=== PATIENT | male | born 1945 | race Caucasian/White ===

== ENCOUNTER → 2018-03-19 07:01 | Outpatient (CLI) | payer MEDICARE ==
[2016-03-31 08:10] VITALS: BMI 26.9
[~2018-03-19 07:01] MED LIST: CATAPRES0.1 MG PO; CELEXA10 MG PO; GLIPIZIDE10 MG PO; LISINOPRIL2.5 MG; MAGNESIUM GLUC500 M1 PO; NORMODYNE / TR300 MG PO; PROTONIX20 MG PO; VITAMIN D3400 UNI1 PO; ZOCOR20 MG PO; [UNRECOGNIZED DRUG - REMARK]
== END | disposition home or self-care (01) ==
LOC: D.US 07:01
DX: I10 Essential (primary) hypertension (principal)

== ENCOUNTER 2018-11-12 19:35 | Inpatient (IN) | payer MEDICARE ==
[~2018-11-12] VITALS: Ht 172.7 cm; Wt 78.0 kg
[~2018-11-12 19:35] MED LIST changes: -LISINOPRIL2.5 MG; +ZESTRIL40 MG PO
[2018-11-12] MEDS ORDERED: HYDRALAZINE HCL25 MG PO (19:42)
--- NOTE | 2018-11-12 19:58 | NUR ---
URINE SAMPLE SENT TO LAB
--- NOTE | 2018-11-12 20:09 | NUR ---
PT GONE TO CT
[2018-11-12 21:27] LABS: APPEARANCE CLEAR (CLEAR); BILIRUBIN NEGATIVE (NEGATIVE); COLOR YELLOW (YELLOW); GLUCOSE 1000 mg/dL (NEGATIVE); KETONE NEGATIVE (NEGATIVE); NITRITE NEGATIVE (NEGATIVE); PROTEIN 1+ mg/dL (NEGATIVE); SPECIFIC GRAVITY 1.015 (1.005-1.020); UROBILINOGEN NORMAL (NORMAL)
[2018-11-12 21:28] LABS: BACTERIA FEW /hpf (NONE SEEN)
[2018-11-12 23:12] VITALS: BP 164/78
--- NOTE | 2018-11-12 23:14 | NUR ---
PT LYING IN ROOM WITH FAMILY AT BEDSIDE. DENIES PAIN OR NEEDS AT THIS TIME.
--- NOTE | 2018-11-13 | NUR ---
RECEIVED TO FLOOR FROM ER, ORIENTED TO ROOM, CALL LIGHT IN REACH, BED LOWEST POSITION, DENIES NEEDS, WILL CONTINUE POC
[2018-11-13 00:10] LABS: BASOPHILS 0 % (0-2); EOSINOPHILS 0 % (0-7); HEMATOCRIT 36.1 % (42.0-54.0); HEMOGLOBIN 12.3 g/dL (13.5-17.5); IMMATURE GRANULOCYTES 0.4 % (0-5); LYMPHOCYTES 8.6 % (15-50); MCH 32.5 pg (26.0-34.0); MCHC 34.1 g/dL (31.0-37.0); MCV 95.5 fL (80.0-100.0); MEAN PLATELET VOLUME 10.4 fL (7.4-10.4); MONOCYTES 7.3 % (2-11); NEUTROPHILS 83.7 % (40-80); PLATELET COUNT 149 10x3/uL (130-400); RBC 3.78 10x6/uL (4.20-6.10); RDW 12.8 % (11.5-14.5); WBC 9.9 10x3/uL (4.8-10.8)
[2018-11-13 00:28] LABS: ALBUMIN 3.6 g/dL (3.4-5.0); ANION GAP 13.3 mmol/L (8-16); BILIRUBIN - TOTAL 0.96 mg/dL (0.2-1.3); CREATININE - SERUM 1.8 mg/dL (0.6-1.3); POTASSIUM - SERUM 5.3 mmol/L (3.5-5.1); PROTEIN - SERUM 7.1 g/dL (6.4-8.2)
[2018-11-13 02:25] VITALS: BP 168/78; BMI 26.2
--- NOTE | 2018-11-13 07:45 | NUR ---
MORNING ASSESSMENT COMPLETE. SEE ASSESSMENT FLOWSHEET FOR FURTEHR DETAILS. PT LYING IN BED AAO X4 TO PERSON, PLACE, TIME, AND SITUATION. DENIES NEEDS AT THIS TIME. TALKED TO ON PHONE. CL IN REACH. SIDE RAILS UP X3 FOR PT SAEFTY. BED IN LOWEST POSITION.
[2018-11-13 08:30] VITALS: BP 160/63
[2018-11-13 10:08] LABS: % SATURATION 24 % (15-55); IRON 64 ug/dl (35-150); TOTAL IRON BIND CAPACITY 261 ug/dl (260-445); UNSAT IRON BIND CAPACITY 197 ug/dl (150-375)
[2018-11-13 11:56] VITALS: BP 195/80
[2018-11-13 12:31] VITALS: Ht 172.7 cm; Wt 78.0 kg
[2018-11-13 15:13] VITALS: BP 123/47
[2018-11-13 19:15] VITALS: BP 122/53
--- NOTE | 2018-11-13 20:00 | NUR ---
ASSESSMENT PER FLOWSHEET. LOPEZ MAT APPLIED TO BED. ALARMS SET. SR UP X2 CALL LIGHT WITHIN REACH PT REFUSES TO WEAR YELLOW GOWN. IV PATENT RT AC OF LR AT 125CC'S/HR. SITE CLEAR. ABRASION AND BRUISES TO LEFT FACE AND LEFT EYE. LEFT ARM AND LEG WITH CONTUSIONS, BRUISING AND ABRASIONS. O2 ON 2L/M PER NC.
--- NOTE | 2018-11-13 21:15 | NUR ---
MEDS GIVEN PER MAR.
--- NOTE | 2018-11-13 21:30 | NUR ---
GVRJ=[id number]. REGULAR INSULIN 12 UNITS GIVEN SUBC TO LEFT ARM PER S/S.
--- NOTE | 2018-11-13 23:01 | NUR ---
C/O PAIN TO LEFT RIB FX SITE. RATES PAIN #8. ULTRAM 100MG PO GIVEN FOR PAIN CONTROL.
--- NOTE | 2018-11-14 02:00 | NUR ---
EYES CLOSED RESPIRATIONS WITH EASE AND UNLABORED.
[2018-11-14 03:17] VITALS: BP 115/61
[2018-11-14 05:18] LABS: BASOPHILS 0 % (0-2); EOSINOPHILS 2.4 % (0-7); HEMATOCRIT 29.1 % (42.0-54.0); IMMATURE GRANULOCYTES 0.2 % (0-5); LYMPHOCYTES 16.5 % (15-50); MCH 32.7 pg (26.0-34.0); MCHC 33.7 g/dL (31.0-37.0); MONOCYTES 12.3 % (2-11); NEUTROPHILS 68.6 % (40-80); PLATELET COUNT 137 10x3/uL (130-400); RDW 13.1 % (11.5-14.5); WBC 8.8 10x3/uL (4.8-10.8)
[2018-11-14 05:28] LABS: HEMOGLOBIN 9.8 g/dL (13.5-17.5)
[2018-11-14 05:49] LABS: ALBUMIN 3.1 g/dL (3.4-5.0); BILIRUBIN - TOTAL 0.53 mg/dL (0.2-1.3); CALCIUM 8.8 mg/dL (8.5-10.1); CARBON DIOXIDE 30.2 mmol/L (21.0-32.0)
[2018-11-14 05:50] LABS: ANION GAP 10.2 mmol/L (8-16); POTASSIUM - SERUM 4.4 mmol/L (3.5-5.1)
--- NOTE | 2018-11-14 06:19 | NUR ---
MEDS GIVEN PER MAR [id number]. NO COVERAGE
[2018-11-14 08:52] VITALS: BP 134/84
[2018-11-14 12:12] LABS: FOLATE (FOLIC ACID) - SERUM 15.3 ng/mL (>3.0)
[2018-11-14 12:57] VITALS: BP 172/58
[2018-11-14 16:14] VITALS: BP 168/68
--- NOTE | 2018-11-14 17:28 | MORECARE ---
CASE MANAGEMENT DISCHARGE SUMMARY PATIENT: LEYDA PINEDA UNIT: [id number] ADM DATE: 11/13/18 AGE: 73 : 45 SEX: M ROOM/BED: D.2223 AUTHOR: LINDA FLORES PHYSICIAN: REFERRING PHYSICIAN: MARY ANNA MD DATE OF SERVICE: 11/14/18 Discharge Plan Patient Name: LEYDA PINEDA Facility: [facility]:[place] : 1945 Planned Disposition: Home Anticipated Discharge Date: 11/17/18 Discharge Date: Expected LOS: 4 Initial Reviewer: [email or web address] Initial Review Date: 11/14/2018 Generated: 11/14/18 6:27 pm DCPIA - Discharge Planning Initial Assessment Updated by [id number]: Alyson Chanel on 11/14/18 5:24 pm * Is the patient Alert and Oriented? Yes * How many steps to enter\exit or inside your home? * PCP DR. LOPEZ * Pharmacy [facility] IN [place] * Preadmission Environment Home with Family * ADLs Independent * Equipment CPAP Glucometer Rolling Walker Shower Chair * List name and contact numbers for known caregivers / representatives who currently or will assist patient after discharge: JUAN () [phone] * Verbal permission to speak to the caregivers and representatives has been obtained from the patient. Yes * Community resources currently utilized None * Additional services required to return to the preadmission environment? Yes * Can the patient safely return to the preadmission environment? Yes * Has this patient been hospitalized within the prior 30 days at any hospital? No Coverage Notice Reviewer: [id number] - Alyson Chanel Notice Issued Date-Time: 11/14/2018 17:50 Notice Type: Medicare Outpatient Observation Notice Notice Delivered To: Family Member Relationship to Patient: Spouse Senior Network Systems Engineer Name: JUAN PINEDA Delivery Method: HAND - Hand Delivered Nettie Days: Prior Verbal Notification: Recipient Understood Notice: Yes Recipient Signature: Yes Med Rec Note Co-signed by Attending: Coverage Notice Comment: Patient Name: LEYDA PINEDA Page [id number] at 1728 All edits/amendments must be made on the electronic document DICTATION DATE: 11/14/181726 ASSEMBLER: MIYA 11/14/181726 RPT#: [id number] DC DATE: STATUS: ADM IN [facility] [address] [place] [address] END OF REPORT
--- NOTE | 2018-11-14 17:36 | MORECARE ---
CASE MANAGEMENT DISCHARGE SUMMARY PATIENT: LEYDA PINEDA UNIT: [id number] ADM DATE: 11/13/18 AGE: 73 : 45 SEX: M ROOM/BED: D.2223 AUTHOR: LINDA FLORES PHYSICIAN: REFERRING PHYSICIAN: MARY ANNA MD DATE OF SERVICE: 11/14/18 Discharge Plan Patient Name: LEYDA PINEDA Facility: [facility]:[place] : 1945 Planned Disposition: Home Anticipated Discharge Date: 11/17/18 Discharge Date: Expected LOS: 4 Initial Reviewer: [email or web address] Initial Review Date: 11/14/2018 Generated: 11/14/18 6:36 pm Comments DCP- Discharge Planning Updated by [id number]: Alyson Chanel on 11/14/18 4:[address] Patient Name: LEYDA PINEDA Admission Status: ER Accout number: [id number] Admission Date: 11-13-2018 : 1945 Admission Diagnosis: Attending: MARY ANNA Current LOS: 1 Anticipated DC Date: 11-17-2018 Planned Disposition: Home Primary Insurance: [facility] MED[employer] Discharge Planning Comments: CM MET WITH PATIENT AND (JUAN) REGARDING D/C NEEDS AND PLANS. PATIENT STATED THERE HOME HAS NO STEPS OR STAIRS. STATED THEIR SON (XAVIER) WILL DRIVE PATIENT HOME AT DISCHARGE. PATIENT STATED HE IS INDEPENDENT WITH HIS CARE AND HAS A WALKER, SHOWER CHAIR, GLUCOMETER AND C-PAP AT HOME. PATIENTS PCP IS DR. LOPEZ AND PHARMACY IS [facility] IN [place]. CM MENTIONED HOME HEALTH AND THE STATED SHE WANTS TO SPEAK WITH THE PHYSICIAN BEFORE SHE DECIDES ON HOME HEALTH. CM WILL CONTINUE TO FOLLOW PATIENT WITH D/C NEEDS AND PLANS. PCP [facility] [place] JUAN () [phone] Polisher Numeral: Alyson Chanel DCPIA - Discharge Planning Initial Assessment Updated by [id number]: Alyson Chanel on 11/14/18 5:24 pm * Is the patient Alert and Oriented? Yes * How many steps to enter\exit or inside your home? * PCP DR. LOPEZ * Pharmacy [facility] IN [place] * Preadmission Environment Home with Family * ADLs Independent * Equipment CPAP Glucometer Rolling Walker Shower Chair * List name and contact numbers for known caregivers / representatives who currently or will assist patient after discharge: JUAN () [phone] * Verbal permission to speak to the caregivers and representatives has been obtained from the patient. Yes * Community resources currently utilized None * Additional services required to return to the preadmission environment? Yes * Can the patient safely return to the preadmission environment? Yes * Has this patient been hospitalized within the prior 30 days at any hospital? No Coverage Notice Reviewer: [id number] Chaz Chanel Notice Issued Date-Time: 11/14/2018 17:50 Notice Type: Medicare Outpatient Observation Notice Notice Delivered To: Family Member Relationship to Patient: Spouse Pipe Jeeper Name: JUAN PINEDA Delivery Method: HAND - Hand Delivered Nettie Days: Prior Verbal Notification: Recipient Understood Notice: Yes Recipient Signature: Yes Med Rec Note Co-signed by Attending: Coverage Notice Comment: Last DP export: 11/14/18 4:27 p Patient Name: LEYDA PINEDA Page [id number] at 1736 All edits/amendments must be made on the electronic document DICTATION DATE: 11/14/181734 GENETIC TECHNOLOGIST: MIYA 11/14/181734 RPT#: [id number] DC DATE: STATUS: ADM IN [facility] [address] [place] [address] END OF REPORT
--- NOTE | 2018-11-14 19:20 | NUR ---
PATIENT IN BED WITH EYES CLOSED RESTING QUIETLY. CALL LIGHT WITHIN REACH.
[2018-11-14 20:00] VITALS: BP 168/62
--- NOTE | 2018-11-14 22:15 | NUR ---
PT SITTING UP IN BED, NO SIGNS OF DISTRESS. ALERT AND ORIENTED. DENIES PAIN AT THIS TIME. IV RIGHT AC INFUSING NS @ 75. SCDS IN PLACE. BED ALARM ON. WITHOUT NEEDS AT THIS TIME. CL IN REACH, WILL CONT TO MONITOR
[2018-11-15] VITALS: BP 179/82
[2018-11-15 04:00] VITALS: BP 137/71
--- NOTE | 2018-11-15 05:15 | NUR ---
REMOVED LIDOCAINE PATCH FROM LEFT RIB CAGE PER ORDER TO REMOVE AFTER 12 HOURS
[2018-11-15 05:39] LABS: ANION GAP 9.2 mmol/L (8-16); CALCIUM 8.3 mg/dL (8.5-10.1); CARBON DIOXIDE 29.1 mmol/L (21.0-32.0); CREATININE - SERUM 1.9 mg/dL (0.6-1.3); POTASSIUM - SERUM 4.3 mmol/L (3.5-5.1)
[2018-11-15 05:56] LABS: HEMATOCRIT 25.5 % (42.0-54.0); HEMOGLOBIN 8.7 g/dL (13.5-17.5); LYMPHOCYTES 20.9 % (15-50); MCH 33.2 pg (26.0-34.0); MCHC 34.1 g/dL (31.0-37.0); MCV 97.3 fL (80.0-100.0); MEAN PLATELET VOLUME 10.2 fL (7.4-10.4); RBC 2.62 10x6/uL (4.20-6.10); RDW 12.8 % (11.5-14.5)
[2018-11-15 05:57] LABS: PLATELET COUNT 109 10x3/uL (130-400); WBC 6.2 10x3/uL (4.8-10.8)
--- NOTE | 2018-11-15 07:55 | NUR ---
ASSESSMENT PER FLOW SHEET. PT IS SITTING UP AT BEDSIDE. HE IS WITHOUT NEEDS.CALL LIGHT IN REACH
[2018-11-15 09:52] VITALS: BP 149/57
--- NOTE | 2018-11-15 10:51 | NUR ---
AMBULATING IN HALLS WITH PT. PT IS WITHOUT DISTRESS
[2018-11-15 13:52] VITALS: BP 166/72
[2018-11-15 14:07] LABS: APPEARANCE CLEAR (CLEAR); BILIRUBIN NEGATIVE (NEGATIVE); COLOR YELLOW (YELLOW); GLUCOSE NEGATIVE (NEGATIVE); KETONE NEGATIVE (NEGATIVE); NITRITE NEGATIVE (NEGATIVE); PROTEIN NEGATIVE (NEGATIVE); SPECIFIC GRAVITY 1.015 (1.005-1.020); UROBILINOGEN NORMAL (NORMAL)
--- NOTE | 2018-11-15 15:37 | NUR ---
NUTRITION F//U PT TOLERATING DIABETIC DIET WITH 100% INTAKE RECENT MEALS. WILL CONTINUE TO PROVIDE DIET, MONITOR PO INTAKE. RD FOLLOWING
[2018-11-15 16:15] LABS: HEMATOCRIT 25.5 % (42.0-54.0); HEMOGLOBIN 8.5 g/dL (13.5-17.5)
[2018-11-15 17:26] VITALS: BP 168/89
--- NOTE | 2018-11-15 19:45 | NUR ---
PT SITTING UP IN BED WITHOUT DISTRESS. STATES PAIN 01/29, GAVE NORCO ORDERED. DENIES OTHER NEEDS AT THIS TIME. LOPEZ ON. CL IN REACH, WILL CONT TO MONITOR
[2018-11-15 21:20] VITALS: BP 158/42
[2018-11-16 00:57] VITALS: BP 154/60
[2018-11-16 05:16] VITALS: BP 147/56
[2018-11-16 06:37] LABS: BASOPHILS 0.4 % (0-2); EOSINOPHILS 5.2 % (0-7); HEMATOCRIT 27.8 % (42.0-54.0); HEMOGLOBIN 9.3 g/dL (13.5-17.5); IMMATURE GRANULOCYTES 0.6 % (0-5); LYMPHOCYTES 23.8 % (15-50); MCH 32.9 pg (26.0-34.0); MCHC 33.5 g/dL (31.0-37.0); MCV 98.2 fL (80.0-100.0); MONOCYTES 11.4 % (2-11); NEUTROPHILS 58.6 % (40-80); PLATELET COUNT 119 10x3/uL (130-400); RBC 2.83 10x6/uL (4.20-6.10); RDW 13.2 % (11.5-14.5); WBC 5.4 10x3/uL (4.8-10.8)
[2018-11-16 06:45] LABS: ANION GAP 12.9 mmol/L (8-16); CALCIUM 8.5 mg/dL (8.5-10.1); CARBON DIOXIDE 28.3 mmol/L (21.0-32.0); CREATININE - SERUM 1.5 mg/dL (0.6-1.3); POTASSIUM - SERUM 4.2 mmol/L (3.5-5.1)
[2018-11-16 08:19] VITALS: BP 150/49
--- NOTE | 2018-11-16 08:45 | NUR ---
AAOX4. ON ROOM AIR, IV TO RIGHT AC, PATENT, INFUSING NS AT 75ML/HR. C/O PAIN LEVEL 5/10. SCD'S PRESENT, DENIES ANY CURRENT NEEDS. FAMILY PRESENT IN ROOM, BED LOWERED AND LOCKED, CALL LIGHT WITHIN REACH. CPOC
[2018-11-16] MEDS ORDERED: ROBAXIN500 MG PO (10:02)
[2018-11-16] MEDS ORDERED: ULTRAM50 MG PO (10:04)
[2018-11-16] MEDS ORDERED: LIDODERM 5 %1 PATCH TRANSDERM (10:06)
--- NOTE | 2018-11-16 10:36 | NUR ---
I have reviewed this patient and I concur with the Shift Assessment completed by the Licensed Practical Nurse today this shift.
--- NOTE | 2018-11-16 12:25 | NUR ---
DISCHARGE INSTRUCTIONS GIVEN, VERBALIZES UNDERSTANDING. DRESSINGS ON LEFT FOREARM AND ELBOW CHANGED, IV DISCONTINUED FROM RIGHT AC, CATHETER TIP INTACT, DENIES ANY QUESTIONS OR CONCERS, TRANSPORTED OFF UNIT VIA WHEELCHAIR.
== END 2018-11-16 12:55 | disposition home or self-care (01) | DRG 699 ==
LOC: D.ER 19:35 → OBSVTIME 11-13 00:12 → D.MS 11-13 00:12
PROVIDERS: Family Medicine; ADMIT Internal Medicine Nephrology; ATTEND Internal Medicine Nephrology
DX: S37.012A Minor contusion of left kidney, initial encounter (principal); S02.19XA Other fracture of base of skull, initial encounter for closed fracture; S22.32XA Fracture of one rib, left side, initial encounter for closed fracture; S02.32XA Fracture of orbital floor, left side, initial encounter for closed fracture; D62 Acute posthemorrhagic anemia; N17.9 Acute kidney failure, unspecified; W19.XXXA Unspecified fall, initial encounter; T14.8XXA Other injury of unspecified body region, initial encounter; I10 Essential (primary) hypertension; E78.5 Hyperlipidemia, unspecified; E11.9 Type 2 diabetes mellitus without complications; E87.5 Hyperkalemia; I12.9 Hypertensive chronic kidney disease with stage 1 through stage 4 chronic kidney disease, or unspecified chronic kidney disease; E11.22 Type 2 diabetes mellitus with diabetic chronic kidney disease; N18.9 Chronic kidney disease, unspecified

== ENCOUNTER → 2019-07-11 12:56 | Outpatient (CLI) | payer MEDICARE ==
[2018-11-13 12:31] VITALS: BMI 26.1
[~2019-07-11 12:56] MED LIST changes: +HYDRALAZINE HCL25 MG PO; +LIDODERM 5 %1 PATCH TRANSDERM; +ROBAXIN500 MG PO; +ULTRAM50 MG PO
== END | disposition home or self-care (01) ==
LOC: D.HCCECHO 06-30 09:30
PROVIDERS: ATTEND Internal Medicine Cardiovascular Disease
DX: I34.0 Nonrheumatic mitral (valve) insufficiency (principal)